=== PATIENT | male | born 1985 | race Caucasian/White ===

== ENCOUNTER 2016-09-29 13:07 | Emergency (ER) | payer OTHER ==
[~2016-09-29] VITALS: Ht 182.9 cm; Wt 82.4 kg
[~2016-09-29 13:07] MED LIST: DOXY1TAB6 PO
[2016-09-29 13:10] VITALS: TEMP 36.6; Ht 182.9 cm; Wt 82.4 kg
[2016-09-29 13:18] VITALS: O2SAT 99
[2016-09-29 13:57] LABS: BASO % 0.8 %; BASO ABS # 0.05 K/uL (0-0.2); COMPLETE YES; EOS % 4.5 %; HEMATOCRIT 42.3 % (42-52); IG% 0.2 %; LYMPH % 34.1 %; LYMPH ABS # 2.06 K/uL (1.2-3.4); MEAN CELL VOLUME 83.9 fL (80-100); MEAN CORPUSCULAR HEMOGLOBIN 29.6 pg (25-34); MEAN CORPUSCULAR HGB CONC 35.2 g/dl (32-36); MEAN PLATELET VOLUME 8.9 fL (7.4-10.4); NEUT % 53.4 %; PLATELET COUNT 293 K/uL (130-400); RED BLOOD COUNT 5.04 M/uL (4.7-6.1); WHITE BLOOD COUNT 6.04 K/uL (4.8-10.8)
[2016-09-29 14:05] LABS: PARTIAL THROMBOPLASTIN RATIO 1.1; PROTHROMBIN TIME (PATIENT) 10.8 SECONDS (9.0-12.0)
--- NOTE | 2016-09-29 14:20 | DIAGNOSTIC IMAGING REPORT ---
CHEST ONE VIEW PORTABLE CLINICAL HISTORY: Fever and sepsis COMPARISON STUDY: No previous studies for comparison. FINDINGS: The cardiac and mediastinal contours are normal. There is no evidence of focal pulmonary consolidation. There is no evidence of failure. No pleural effusions are visualized.[ IMPRESSION: No active disease in the chest. Electronically signed by: Kem Estes M.D. 09/29/2016 2:18 PM Dictated Date/Time: 09/29/2016 2:18 PM
[2016-09-29 14:23] LABS: BLOOD UREA NITROGEN 8 mg/dl (7-18); BUN/CREATININE RATIO 8.7 (10-20); CALCIUM 9.2 mg/dl (8.5-10.1); CARBON DIOXIDE 28 mmol/L (21-32); CHLORIDE 106 mmol/L (98-107); CHOLESTEROL 175 mg/dl (0-200); GLUCOSE 86 mg/dl (70-99); POTASSIUM 3.9 mmol/L (3.5-5.1); SODIUM 141 mmol/L (136-145); TRIGLYCERIDES 94 mg/dl (0-150); VERY LOW DENSITY LIPOPROT CALC 19 mg/dl
[2016-09-29 14:33] LABS: CHOLESTEROL/HDL RATIO 4.3; HDL CHOLESTEROL 41 mg/dl; LDL CHOLESTEROL CALCULATED 115 mg/dl; THYROID STIMULATING HORMONE 0.653 uIu/ml (0.300-4.500)
[2016-09-29] MEDS ORDERED: ALPR-411 PO (14:41)
--- NOTE | 2016-09-29 14:50 | EMERGENCY ROOM VISIT NOTE ---
History Report prepared by Alyx: Yamel Cole Under the Supervision of: Dr. Neymar Wray D.O. First contact with patient: 13:32 Chief Complaint: TACHYCARDIA Stated Complaint: SKIPPING HEARTBEATS, FAST HEARTBEAT, WEAKNESS, FAT Nursing Triage Summary: "I feel like my heart goes fast and slow at times. it has been ongoing since july." shortness of breat and fatigue feeling when it happens. no current symptoms at this time History of Present Illness The patient is a 31 year old male who presents to the Emergency Room with complaints of intermittent heart palpitations that began one month ago. The patient states that once per day he feels that his heart goes out of rhythm. He states that he notices his symptoms more after eating. The patient notes that he has a history of Lyme disease. He additionally associates fatigue with his symptoms today, but denies any chest pain. The patient states that for the past week has been wearing a halter-monitor, but states that he took it off last night. He states that he does not have the results from that yet. The patient's significant other notes that the patient's feet have been erythematous and edematous recently. Source of History: patient, spouse/significant other Onset: one month ago Position: other (global) Quality: other (palpitations) Timing: intermittent Modifying Factors (Worsening): eating Associated Symptoms: + fatigue, No chest pain Note: Associated Symptoms: erythematous and edematous feet Review of Systems See HPI for pertinent positives & negatives. A total of 10 systems reviewed and were otherwise negative. Past Medical & Surgical Medical Problems: (1) Lyme disease Family History Patient reports no known family medical history. Social History Smoking Status: Former Smoker Current/Historical Medications Scheduled PRN Alprazolam (Xanax), 0.5 MG PO DAILY PRN for Anxiety Allergies Coded Allergies: NUTS (Verified Allergy, Unknown, Throat irritation and welts, 09/29/16) Physical Exam Vital Signs Date Time Temp Pulse Resp B/P Pulse Ox O2 Delivery O2 Flow Rate FiO2 09/29/16 15:00 78 18 122/84 98 Room Air 09/29/16 13:47 76 09/29/16 13:18 99 Room Air 09/29/16 13:16 99 Room Air 09/29/16 13:10 36.6 84 18 144/85 99 Room Air Physical Exam CONSTITUTIONAL/VITAL SIGNS: Reviewed / noted above. GENERAL: Non-toxic in appearance. INTEGUMENTARY: Warm, dry, and [place]. HEAD: Normocephalic. EYES: without scleral icterus or trauma. ENT/OROPHARYNX: clear and moist. LYMPHADENOPATHY/NECK: Is supple without lymphadenopathy or meningismus. RESPIRATORY: Lungs clear and equal. CARDIOVASCULAR: Regular rate and rhythm. GI/ABDOMEN: Soft and nontender. No organomegaly or pulsatile mass. No rebound or guarding. Normal bowel sounds. EXTREMITIES: Warm and well perfused. BACK: No CVA tenderness. NEUROLOGICAL: Intact without focal deficits. PSYCHIATRIC: normal affect. MUSCULOSKELETAL: Normally developed with good muscle tone. Medical Decision & Procedures ER Provider Diagnostic Interpretation: X ray results and stated below per my interpretation and radiology interpretation. CHEST ONE VIEW PORTABLE CLINICAL HISTORY: Fever and sepsis COMPARISON STUDY: No previous studies for comparison. FINDINGS: The cardiac and mediastinal contours are normal. There is no evidence of focal pulmonary consolidation. There is no evidence of failure. No pleural effusions are visualized.[ IMPRESSION: No active disease in the chest. Electronically signed by: Kem Estes M.D. 09/29/2016 2:18 PM Dictated Date/Time: 09/29/2016 2:18 PM Laboratory Results 09/29/16 13:40 Red Blood Count 5.04, Mean Corpuscular Volume 83.9, Mean Corpuscular Hemoglobin 29.6, Mean Corpuscular Hemoglobin Concent 35.2, Mean Platelet Volume 8.9, Neutrophils (%) (Auto) 53.4, Lymphocytes (%) (Auto) 34.1, Monocytes (%) (Auto) 7.0, Eosinophils (%) (Auto) 4.5, Basophils (%) (Auto) 0.8, Neutrophils # (Auto) 3.23, Lymphocytes # (Auto) 2.06, Monocytes # (Auto) 0.42, Eosinophils # (Auto) 0.27, Basophils # (Auto) 0.05 09/29/16 13:40 Test 09/29/16 13:40 White Blood Count 6.04 K/uL (4.8-10.8) Red Blood Count 5.04 M/uL (4.7-6.1) Hemoglobin 14.9 g/dL (14.0-18.0) Hematocrit 42.3 % (42-52) Mean Corpuscular Volume 83.9 fL (80-100) Mean Corpuscular Hemoglobin 29.6 pg (25-34) Mean Corpuscular Hemoglobin Concent 35.2 g/dl (32-36) Platelet Count 293 K/uL (130-400) Mean Platelet Volume 8.9 fL (7.4-10.4) Neutrophils (%) (Auto) 53.4 % Lymphocytes (%) (Auto) 34.1 % Monocytes (%) (Auto) 7.0 % Eosinophils (%) (Auto) 4.5 % Basophils (%) (Auto) 0.8 % Neutrophils # (Auto) 3.23 K/uL (1.4-6.5) Lymphocytes # (Auto) 2.06 K/uL (1.2-3.4) Monocytes # (Auto) 0.42 K/uL (0.11-0.59) Eosinophils # (Auto) 0.27 K/uL (0-0.5) Basophils # (Auto) 0.05 K/uL (0-0.2) RDW Standard Deviation 39.0 fL (36.4-46.3) RDW Coefficient of Variation 13.0 % (11.5-14.5) Immature Granulocyte % (Auto) 0.2 % Immature Granulocyte # (Auto) 0.01 K/uL (0.00-0.02) Prothrombin Time 10.8 SECONDS (9.0-12.0) Prothromb Time International Ratio 1.0 (0.9-1.1) Activated Partial Thromboplast Time 27.8 SECONDS (21.0-31.0) Partial Thromboplastin Ratio 1.1 Anion Gap 7.0 mmol/L (3-11) Est Creatinine Clear Calc Drug Dose 131.8 ml/min Estimated GFR () 132.4 Estimated GFR (Non- 114.2 BUN/Creatinine Ratio 8.7 (10-20) Calcium Level 9.2 mg/dl (8.5-10.1) Total Creatine Kinase 52 U/L (39-308) Creatine Kinase MB < 0.5 ng/ml (0.5-3.6) Creatine Kinase MB Ratio (0-3.0) Troponin I < 0.015 ng/ml (0-0.045) Triglycerides Level 94 mg/dl (0-150) Cholesterol Level 175 mg/dl (0-200) HDL Cholesterol 41 mg/dl LDL Cholesterol, Calculated 115 mg/dl VLDL Cholesterol, Calculated 19 mg/dl Cholesterol/HDL Ratio 4.3 Thyroid Stimulating Hormone (TSH) 0.653 uIu/ml (0.300-4.500) Laboratory results as stated above per my review. ECG Indication: palpitations Rate (beats per minute): 67 Rhythm: normal sinus Findings: no acute ischemic change, no ectopy ED Course 1332: Previous medical records were reviewed. The patient was evaluated in room B2. A complete history and physical examination was performed. 1450: I reevaluated the patient and he is resting comfortably. I discussed the exam findings with him and I discussed the treatment plan. He verbalized complete understanding and agreement. The patient is ready to go home. Medical Decision the differential was considered includes acute myocardial infarction, acute coronary syndrome, myocarditis, pericarditis, pericardial effusions /tamponad, esophageal perforation, thoracic aortic dissection, pulmonary embolism, pneumonia, pneumothorax, pancreatitis, shingles, acute cholecystitis, perforated abdominal viscus. This is a 31-year-old male who presents to the ED with a chief complaint of palpitations. The patient states that his heart has been feeling like it's going out of rhythm periodically over the past week or more. He states that it happens about once or twice a day for about a half an hour. He denies symptoms now. He had symptoms this morning. He has had a event monitor in place and turned it in yesterday but has not heard anything from his emergency management system director. The patient's vital signs are normal. His heart rate is currently normal. His monitor shows a normal sinus rhythm. A twelve-lead EKG shows a normal sinus rhythm. Blood work including a CBC and complete metabolic panel were normal. TSH was normal. Cardiac enzymes are normal. The patient's cholesterol is normal. The patient was told results the test. He is felt to be stable for discharge. He will follow-up with his emergency management system director for further evaluation of his event monitor and symptoms. Impression Primary Impression: Heart palpitations Scribe Attestation The scribe's documentation has been prepared under my direction and personally reviewed by me in its entirety. I confirm that the note above accurately reflects all work, treatment, procedures, and medical decision making performed by me. Departure Information Dispostion Home / Self-Care Referrals Naseem Siddiqi PA-C (PCP) Forms HOME CARE DOCUMENTATION FORM, IMPORTANT VISIT INFORMATION, WORK / SCHOOL INSTRUCTIONS Patient Instructions [facility] Additional Instructions Follow-up with your emergency management system director. Your cholesterol testing is normal. Your white blood cell count is normal. Your thyroid function is normal. Your cardiac enzymes are normal.
[2016-09-29 15:00] VITALS: BP 122/84; PULSE 78; O2SAT 98
== END 2016-09-29 15:23 | disposition home or self-care (01) ==
LOC: C.EDB 13:08
DX: R00.2 Palpitations (principal); R53.83 Other fatigue; Z87.891 Personal history of nicotine dependence

== ENCOUNTER 2017-04-10 13:15 | Emergency (ER) | payer OTHER ==
[~2017-04-10] VITALS: Ht 182.9 cm; Wt 86.1 kg
[~2017-04-10 13:15] MED LIST changes: +ALPR-411 PO; -DOXY1TAB6 PO
[2017-04-10 13:25] VITALS: TEMP 36.5; Ht 182.9 cm; Wt 86.1 kg
[2017-04-10] MEDS ORDERED: SODIUM CHLORIDE 0.9% 1000ML 1,000 ML IV STA (13:37)
[2017-04-10] MEDS ORDERED: LORA-741 PO (13:56)
[2017-04-10] MEDS ORDERED: ESCI10TA17 PO (13:56)
[2017-04-10 14:17] LABS: BASO % 0.9 %; BASO ABS # 0.06 K/uL (0-0.2); COMPLETE YES; EOS % 5.1 %; HEMATOCRIT 43.2 % (42-52); IG% 0.3 %; LYMPH % 30.3 %; LYMPH ABS # 2.09 K/uL (1.2-3.4); MEAN CORPUSCULAR HEMOGLOBIN 29.9 pg (25-34); MEAN PLATELET VOLUME 9.3 fL (7.4-10.4); MONO % 10.7 %; NEUT % 52.7 %; PLATELET COUNT 254 K/uL (130-400); RED BLOOD COUNT 4.91 M/uL (4.7-6.1); WHITE BLOOD COUNT 6.89 K/uL (4.8-10.8)
[2017-04-10 14:22] LABS: BUN/CREATININE RATIO 9.4 (10-20); CALCIUM 9.2 mg/dl (8.5-10.1); CREATININE 0.96 mg/dl (0.60-1.40)
[2017-04-10 14:55] LABS: URINE APPEARANCE TURBID (CLEAR); URINE BILIRUBIN NEG (NEG); URINE COLOR YELLOW; URINE EPITHELIAL CELL AUTO 0-5 /lpf (0-5); URINE NITRITE NEG (NEG); URINE PH 8.5 (4.5-7.5); UROBILINOGEN NEG (NEG); ZZUR CULT IF INDIC CLEAN CATCH NO
[2017-04-10 15:10] LABS: MANUAL MICROSCOPIC REQUIRED? NO; REVIEW REQ? NO
--- NOTE | 2017-04-10 15:21 | DIAGNOSTIC IMAGING REPORT ---
GALLBLADDER-ABD LIMITED HISTORY: 31 years-old Male RUQ pain, bloating acute right upper quadrant abdominal pain and bloating. COMPARISON: None available TECHNIQUE: Multiple real-time sonographic images of the abdominal right upper quadrant were obtained assessing grayscale appearance and color flow FINDINGS: Visualized portions of the pancreas are unremarkable majority of the gland obscured by bowel gas. There is increased echogenicity of the hepatic parenchyma with poor through transmission compatible with fatty infiltration. No focal hepatic mass lesions of the liver identified. Liver measures up to 18.2 cm. Gallbladder is contracted with wall thickening, 0.5 cm. No shadowing cholelithiasis or pericholecystic fluid collections. Patient reports recent oral intake. Mobile duct is normal, 0.3 cm. Imaged portions of the right kidney are unremarkable without hydronephrosis. IMPRESSION: 1. Contracted gallbladder without sonographic evidence of cholelithiasis or acute cholecystitis . 2. No biliary ductal dilation. 3. Fatty infiltration of the liver. The above report was generated using voice recognition software. It may contain grammatical, syntax or spelling errors. Electronically signed by: Nelson Crane M.D. 04/10/2017 3:20 PM Dictated Date/Time: 04/10/2017 3:17 PM
--- NOTE | 2017-04-10 15:31 | EMERGENCY ROOM VISIT NOTE ---
History First contact with patient: 13:26 Chief Complaint: FLANK PAIN Stated Complaint: PAIN ON R SIDE History of Present Illness The patient is a 31 year old male who presents to the Emergency Room with complaints of right-sided abdominal pain and bloating intimately for the past 2 weeks. The patient states that he has had pain in his right upper abdomen as well as bloating and nausea for the past 2 weeks. His symptoms worsened over the past one week. He states that he has had a slightly decreased appetite, but is able to eat. He denies any vomiting. He denies any changes in his bowel movements. The patient reports a history of colitis as a child which resolved at age 13. He reports a family history of gallbladder disease. He denies any history of abdominal surgeries. He denies any fevers/chills or urinary symptoms. Review of Systems A complete 10 point review of systems was reviewed with the patient with pertinent positives and negatives as per history of present illness. All else were negative. Past Medical/Surgical History Medical Problems: (1) Lyme disease Family History Patient reports no known family medical history. Social History Smoking Status: Never Smoker Current/Historical Medications Scheduled Escitalopram (Lexapro), 10 MG PO DAILY Lorazepam (Ativan), 0.5 MG PO DAILY Physical Exam Vital Signs Date Time Temp Pulse Resp B/P (MAP) Pulse Ox O2 Delivery O2 Flow Rate FiO2 04/10/17 15:47 73 18 111/62 99 04/10/17 13:25 36.5 79 18 123/78 99 Room Air Physical Exam VITALS: Vitals are noted on the nurse's note and reviewed by myself. Vital signs stable. GENERAL: This is a 31-year-old male, in no acute distress, nondiaphoretic, well- developed well-nourished. HEART: Regular rate and rhythm without murmurs gallops or rubs. LUNGS: Clear to auscultation bilaterally without wheezes, rales or rhonchi. ABDOMEN: Positive bowel sounds x 4. Soft, mild tenderness in the right upper quadrant. No guarding or rebound tenderness. Negative [place] sign. NEURO: Patient was alert and oriented to person place and time. Medical Decision & Procedures ER Provider Diagnostic Interpretation: GALLBLADDER-ABD LIMITED HISTORY: 31 years-old Male RUQ pain, bloating acute right upper quadrant abdominal pain and bloating. COMPARISON: None available TECHNIQUE: Multiple real-time sonographic images of the abdominal right upper quadrant were obtained assessing grayscale appearance and color flow FINDINGS: Visualized portions of the pancreas are unremarkable majority of the gland obscured by bowel gas. There is increased echogenicity of the hepatic parenchyma with poor through transmission compatible with fatty infiltration. No focal hepatic mass lesions of the liver identified. Liver measures up to 18.2 cm. Gallbladder is contracted with wall thickening, 0.5 cm. No shadowing cholelithiasis or pericholecystic fluid collections. Patient reports recent oral intake. Mobile duct is normal, 0.3 cm. Imaged portions of the right kidney are unremarkable without hydronephrosis. IMPRESSION: 1. Contracted gallbladder without sonographic evidence of cholelithiasis or acute cholecystitis . 2. No biliary ductal dilation. 3. Fatty infiltration of the liver. Laboratory Results 04/10/17 13:50 Red Blood Count 4.91, Mean Corpuscular Volume 88.0, Mean Corpuscular Hemoglobin 29.9, Mean Corpuscular Hemoglobin Concent 34.0, Mean Platelet Volume 9.3, Neutrophils (%) (Auto) 52.7, Lymphocytes (%) (Auto) 30.3, Monocytes (%) (Auto) 10.7, Eosinophils (%) (Auto) 5.1, Basophils (%) (Auto) 0.9, Neutrophils # (Auto ) 3.63, Lymphocytes # (Auto) 2.09, Monocytes # (Auto) 0.74, Eosinophils # (Auto ) 0.35, Basophils # (Auto) 0.06 04/10/17 13:50 Test 04/10/17 13:50 04/10/17 14:15 White Blood Count 6.89 K/uL (4.8-10.8) Red Blood Count 4.91 M/uL (4.7-6.1) Hemoglobin 14.7 g/dL (14.0-18.0) Hematocrit 43.2 % (42-52) Mean Corpuscular Volume 88.0 fL (80-100) Mean Corpuscular Hemoglobin 29.9 pg (25-34) Mean Corpuscular Hemoglobin Concent 34.0 g/dl (32-36) Platelet Count 254 K/uL (130-400) Mean Platelet Volume 9.3 fL (7.4-10.4) Neutrophils (%) (Auto) 52.7 % Lymphocytes (%) (Auto) 30.3 % Monocytes (%) (Auto) 10.7 % Eosinophils (%) (Auto) 5.1 % Basophils (%) (Auto) 0.9 % Neutrophils # (Auto) 3.63 K/uL (1.4-6.5) Lymphocytes # (Auto) 2.09 K/uL (1.2-3.4) Monocytes # (Auto) 0.74 K/uL (0.11-0.59) Eosinophils # (Auto) 0.35 K/uL (0-0.5) Basophils # (Auto) 0.06 K/uL (0-0.2) RDW Standard Deviation 43.7 fL (36.4-46.3) RDW Coefficient of Variation 13.6 % (11.5-14.5) Immature Granulocyte % (Auto) 0.3 % Immature Granulocyte # (Auto) 0.02 K/uL (0.00-0.02) Anion Gap 4.0 mmol/L (3-11) Est Creatinine Clear Calc Drug Dose 123.5 ml/min Estimated GFR () 122.4 Estimated GFR (Non- 105.6 BUN/Creatinine Ratio 9.4 (10-20) Calcium Level 9.2 mg/dl (8.5-10.1) Total Bilirubin 0.4 mg/dl (0.2-1) Direct Bilirubin 0.1 mg/dl (0-0.2) Aspartate Amino Transf (AST/SGOT) 13 U/L (15-37) Alanine Aminotransferase (ALT/SGPT) 22 U/L (12-78) Alkaline Phosphatase 67 U/L (45-117) Total Protein 6.9 gm/dl (6.4-8.2) Albumin 3.7 gm/dl (3.4-5.0) Lipase 72 U/L (73-393) Urine Color YELLOW Urine Appearance TURBID (CLEAR) Urine pH 8.5 (4.5-7.5) Urine Specific [place] 1.020 (1.000-1.030) Urine Protein NEG (NEG) Urine Glucose (UA) NEG (NEG) Urine Ketones NEG (NEG) Urine Occult Blood NEG (NEG) Urine Nitrite NEG (NEG) Urine Bilirubin NEG (NEG) Urine Urobilinogen NEG (NEG) Urine Leukocyte Esterase NEG (NEG) Urine WBC (Auto) 1-5 /hpf (0-5) Urine RBC (Auto) 0-4 /hpf (0-4) Urine Hyaline Casts (Auto) 0 /lpf (0-5) Urine Epithelial Cells (Auto) 0-5 /lpf (0-5) Urine Bacteria (Auto) NEG (NEG) Medications Administered Medications (Trade) Dose Ordered Sig/Ninfa Route Start Time Stop Time Status Last Admin Dose Admin Sodium Chloride 1,000 ml @ 999 mls/hr Q1H1M STAT IV 04/10/17 13:37 04/10/17 14:37 DC 04/10/17 13:54 999 MLS/HR ED Course The patient was evaluated as above. Labs were drawn and IV access was obtained. Right upper quadrant ultrasound was performed and read by radiology as above. Patient was reevaluated and findings were discussed with the patient. He verbalized understanding. Discharge instructions were reviewed with the patient. The patient verbalized understanding of my assessment and treatment plan and was discharged home in good condition. Medical Decision Differential diagnosis includes cholecystitis, cholelithiasis, pancreatitis, acute hepatitis, gastritis, colitis, appendicitis, kidney stone, among others. The patient is a 31-year-old male who presents today complaining of right upper quadrant pain that has been ongoing for the past few weeks. Labs revealed no leukocytosis, anemia or concerning electrolyte abnormalities. LFTs were within normal limits. Lipase was not elevated. Urinalysis was not suggestive of infection. Right upper quadrant ultrasound was performed and showed no significant abnormalities. Patient was advised to follow-up with his primary care provider, as he may need further workup as an outpatient. However, given the patient is afebrile and labs are unremarkable, I do not feel further workup is indicated at this time. He was encouraged to return here if he develops worsening pain, vomiting or any other concerning symptoms. The patient's case was reviewed with Dr. Liang, ED attending physician, who agreed with my assessment and treatment plan. Based on the patient's presentation and work up, I feel the patient is stable for outpatient treatment. The patient was educated to return to the emergency department for any worsening of their current condition or new/concerning symptoms. He will follow up with his primary care provider. Medication Reconcilliation Current Medication List: was personally reviewed by me Blood Pressure Screening Patient's blood pressure: Normal blood pressure Impression Primary Impression: Right upper quadrant abdominal pain Departure Information Dispostion Home / Self-Care Condition GOOD Referrals No Doctor, Assigned (PCP) Patient Instructions My [facility] Additional Instructions You have been treated in the Emergency Department for your Abdominal Pain. Laboratory results and imaging studies have ruled out any emergent causes for your abdominal pain which would warrant admission or surgery. You should begin Prilosec daily. This is an [id number] medication. Take this medication every morning before eating. For pain control, you can use the following [id number] medicines (if >12 yo): - Regular strength (325mg/tab) Tylenol (acetaminophen) 2 tabs every 4-6 hours as needed. Do not exceed 12 tablets in a 24 hour period. Avoid taking more than 4 grams (4000 mg) of Tylenol per day. This includes any other sources of acetaminophen you may take on a regular basis. - Regular strength (200 mg/tab) Advil (ibuprofen) 1-2 tabs every 4-6 hours as needed. Do not exceed a dose of 3200 mg per day. Drink plenty of water and stay well hydrated. As with any trip to the Emergency Department, you should follow-up with your Primary Care Provider from today's visit. Call tomorrow to schedule a follow- up appointment. Return to the emergency department with worsening abdominal pain, vomiting, fevers, or any other new/concerning symptoms.
[2017-04-10 15:47] VITALS: BP 111/62; PULSE 73; O2SAT 99
== END 2017-04-10 15:47 | disposition home or self-care (01) ==
LOC: C.EDB 13:16 → C.EDC 15:47
DX: R10.11 Right upper quadrant pain (principal)